=== PATIENT | female | born 1980 | race American Indian/Alaskan Native ===

== ENCOUNTER 2021-12-11 10:10 | Emergency (ER) | payer MEDICAID ==
[2021-12-11] MEDS ORDERED: ACETAMINOPHEN 500 MG TAB PO ONE (14:59)
--- NOTE | 2021-12-11 15:31 | Emergency Department Report ---
ED Upper Extremity Inj HPI - General Chief Complaint: Extremity Problem,Nontraumatic Stated Complaint: LT HAND NUMB AND PAIN Time Seen by Provider: 12/11/21 14:08 Source: patient Mode of arrival: Ambulatory Limitations: No Limitations - History of Present Illness Initial Comments: This is a 41-year-old female nontoxic, well nourished in appearance, no acute signs of distress presents to the ED with c/o of intermittent left wrist tingling with radiation to hand/fingers x several days. 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 Patient denies any injuries or trauma. Patient denies any fever, chills, nausea, vomiting, chest pain, shortness of breath, headache, stiff neck. Patient denies any joint swelling or joint redness. Patient denies decreased range of motion. Patient stated allergies to ibuprofen. MD Complaint: Injury to:: left, wrist, hand -: days(s) Other Extremity Injury: Fingers: Left, Hand: Left, Wrist: Left Severity scale (0 -10): 3 Improves With: immobilization Worsens With: movement of extremity Associated Symptoms: denies other symptoms. denies: weakness, numbness, neck pain, suspects foreign body, nausea/vomiting, heard/felt popping sensat - Related Data Previous Rx's Medication Instructions Recorded Last Taken Type Acetaminophen [Acetaminophen 8 650 mg PO Q8H PRN #12 tab 12/11/21 Unknown Rx Hour] Allergies Allergy/AdvReac Type Severity Reaction Status Date / Time ibuprofen [From Motrin] Allergy Hives Verified 12/11/21 10:52 ED Review of Systems ROS: Stated complaint: LT HAND NUMB AND PAIN Other details as noted in HPI Comment: All other systems reviewed and negative Constitutional: denies: chills, fever Eyes: denies: eye pain, eye discharge, vision change ENT: denies: ear pain, throat pain Respiratory: denies: cough, shortness of breath, wheezing Cardiovascular: denies: chest pain, palpitations Endocrine: no symptoms reported Gastrointestinal: denies: abdominal pain, nausea, diarrhea Genitourinary: denies: urgency, dysuria, discharge Musculoskeletal: denies: back pain, joint swelling, arthralgia Skin: denies: rash, lesions Neurological: denies: headache, weakness, paresthesias Psychiatric: denies: anxiety, depression Hematological/Lymphatic: denies: easy bleeding, easy bruising ED Past Medical Hx - Medications Home Medications: Home Medications Medication Instructions Recorded Confirmed Last Taken Type Acetaminophen [Acetaminophen 8 650 mg PO Q8H PRN #12 tab 12/11/21 Unknown Rx Hour] ED Physical Exam - General Limitations: No Limitations General appearance: alert, in no apparent distress - Head Head exam: Present: atraumatic, normocephalic - Eye Eye exam: Present: normal appearance - Neck Neck exam: Present: normal inspection, full ROM. Absent: lymphadenopathy - Respiratory Respiratory exam: Absent: respiratory distress - Cardiovascular Cardiovascular Exam: Present: regular rate - Extremities Exam Extremities exam: Present: normal inspection, full ROM, normal capillary refill. Absent: tenderness, joint swelling - Expanded Upper Extremity Exam Left General: Present: normal inspection (bilateral exam) Shoulder Exam: Present: normal inspection (bilateral exam), full ROM (bilateral exam). Absent: tenderness (bilateral exam), swelling (bilateral exam) Upper Arm exam: Present: normal inspection (bilateral exam), full ROM (bilateral exam). Absent: tenderness (bilateral exam), swelling (bilateral exam) Elbow exam: Present: normal inspection (bilateral exam), full ROM (bilateral exam). Absent: tenderness (bilateral exam), swelling (bilateral exam), abrasion (bilateral exam), laceration (bilateral exam), ecchymosis (bilateral exam), deformity (bilateral exam), crepidus (bilateral exam), dislocation (bilateral exam), erythema (bilateral exam), effusion (bilateral exam), pain w/ pronation/supination, tenderness over radial head Forearm Wrist exam: Present: normal inspection (bilateral exam), full ROM (bilateral exam). Absent: tenderness (bilateral exam), swelling (bilateral exam), abrasion (bilateral exam), laceration (bilateral exam), ecchymosis, deformity (bilateral exam), crepidus (bilateral exam), dislocation (bilateral exam), erythema (bilateral exam), tenderness over anatomical snuff box (bilateral exam), pain with axial thumb loading (bilateral exam) Hand Wrist exam: Present: normal inspection (bilateral exam), full ROM (bilateral exam), other (positive left phalen's test). Absent: tenderness (bilateral exam), swelling (bilateral exam), abrasion (bilateral exam), laceration (bilateral exam), ecchymosis (bilateral exam), deformity (bilateral exam), crepidus (bilateral exam), dislocation (bilateral exam), erythema (bilateral exam), amputation (bilateral exam), nail avulsion (bilateral exam), subungual hematoma (bilateral exam) Vascular: Present: normal capillary refill. Absent: vascular compromise (Neurovascular within normal limits) - Back Exam Back exam: Present: full ROM - Neurological Exam Neurological exam: Present: alert, oriented X3, normal gait - Psychiatric Psychiatric exam: Present: normal affect, normal mood - Skin Skin exam: Present: warm, dry, intact, normal color. Absent: rash ED Course Vital Signs 12/11/21 10:48 Temperature 98.9 F Pulse Rate 82 Respiratory 18 Rate Blood Pressure 151/103 [Left] O2 Sat by Pulse 100 Oximetry - Reevaluation(s) Reevaluation #1: 12/11/21 15:33 Patient is speaking in full sentences with no signs of distress noted. ED Medical Decision Making - Medical Decision Making This is a 41-year-old female that presents with left carpal tunnel syndrome. Patient is stable and was examined by me. I referred patient to an orthopedic doctor for further evaluation for possible MRI. Patient does have normal ROM with no tenderness and no joint swelling. No ecchymosis. no joint redness or swelling. Not warm to touch. No signs of cellulites present. Patient received a wrist immobilize. Patient was instructed to RICE therapy. Patient received Ty lenol for pain. Patient is discharged with Tylneol. At time of discharge, the patient does not seem toxic or ill in appearance. No acute signs of distress noted. Patient agrees to discharge treatment plan of care. No further questions noted by the patient. Critical care attestation.: If time is entered above; I have spent that time in minutes in the direct care of this critically ill patient, excluding procedure time. ED Disposition Clinical Impression: Left carpal tunnel syndrome Disposition: HOME / SELF CARE / HOMELESS Is pt being admited?: No Does the pt Need Aspirin: No Condition: Stable Instructions: Preventing Carpal Tunnel Syndrome, Carpal Tunnel Syndrome, [id number] Additional Instructions: Follow-up with a orthopedic doctor in 3-5 days or if symptoms worsen and continue return to emergency room as soon as possible. Prescriptions: Acetaminophen [Acetaminophen 8 Hour] 650 mg PO Q8H PRN #12 tab PRN Reason: Pain , Severe (7-10) Referrals: PRIMARY CAREMD [Primary Care Provider] - 3-5 Days GRAEME HUERTA MD [Staff Physician] - 3-5 Days Forms: Work/School Release Form(ED) Time of Disposition: 15:35
[2021-12-11 16:30] VITALS: BP 118/96
== END 2021-12-11 16:30 | disposition home or self-care (01) ==
LOC: ED 10:10
DX: G56.02 Carpal tunnel syndrome, left upper limb (principal); Z88.6 Allergy status to analgesic agent; Z79.899 Other long term (current) drug therapy
CPT/HCPCS: 99282